=== PATIENT | female | born 1995 | race Caucasian/White ===

== ENCOUNTER 2019-01-09 19:32 | Inpatient (IN) | payer SELFPAY ==
[~2019-01-09] VITALS: Ht 149.9 cm; Wt 68.0 kg
[2019-01-09] MEDS ORDERED: LACTATED RINGERS 1,000 ML IV SCH ×2 (20:23→21:30)
[2019-01-09] MEDS ORDERED: DEXT 5%/LR + PITOCIN 20UNITS/L 1,000 ML IV SCH (20:23)
[2019-01-09] MEDS ORDERED: BUTORPHANOL TARTRATE 2 MG/ML VIAL IV PRN (20:30)
[2019-01-09] MEDS ORDERED: LIDOCAINE HCL 1% 20ML VIAL (Pyxis) INJ INFIL SCH (20:30)
[2019-01-09] MEDS ORDERED: MISOPROSTOL 100MCG TABLET VG SCH (20:30)
[2019-01-09 20:42] LABS: CLARITY URINE CLEAR (CLEAR); COLOR URINE YELLOW (YELLOW); KETONES URINE NEGATIVE (NEGATIVE); LEUKOCYTE ESTERASE URINE 2+ (NEGATIVE); NITRITE URINE NEGATIVE (NEGATIVE); OCCULT BLOOD URINE 1+ (NEGATIVE); PH URINE 7.5 (4.5-8.0); PROTEIN URINE NEGATIVE (NEGATIVE); SPECIFIC GRAVITY URINE 1.009 (1.005-1.030)
[2019-01-09 20:48] LABS: BASOPHILS % 0.7 % (0.0-2.0); EOSINOPHILS % 6.7 % (0.0-5.0); HEMATOCRIT. 35.6 % (36.0-48.0); LYMPHOCYTES % 20.1 % (20.0-50.0); MEAN CORPUSCULAR HEMOGLOBIN 30.2 pg (28.0-32.0); MEAN CORPUSCULAR VOLUME 89.5 fL (81.0-99.0); MEAN PLATELET VOLUME 9.7 fl (7.4-10.4); MONOCYTES % 5.2 % (2.0-8.0); NEUTROPHILS % 67.3 % (40.0-76.0); PLATELET 246 x1000/uL (130-400); RED BLOOD CELL COUNT 3.98 mill/uL (4.2-5.4); RED CELL DISTRIBUTION WIDTH 14.5 % (11.6-14.6)
[2019-01-09 20:51] LABS: METHADONE URINE SCREEN NEGATIVE (NEGATIVE)
[2019-01-09 20:52] LABS: CHLORIDE 105 mEq/L (98-107)
[2019-01-09 20:52] LABS: *AMPHETAMINES SCREEN URINE NEGATIVE (NEGATIVE); *BARBITURATES SCREEN URINE NEGATIVE (NEGATIVE); *BENZODIAZEPINES SCREEN URINE NEGATIVE (NEGATIVE); *COCAINE SCREEN URINE NEGATIVE (NEGATIVE); CANNABINOID URINE SCREEN NEGATIVE (NEGATIVE); OPIATES URINE SCREEN NEGATIVE (NEGATIVE); PHENCYCLIDINE URINE SCREEN NEGATIVE (NEGATIVE)
[2019-01-09 20:59] LABS: INR 0.9; PARTIAL THROMBOPLASTIN TIME 28.3 sec (23.4-31.0); PROTHROMBIN TIME 9.3 sec (9.6-11.0)
[2019-01-09] MEDS ORDERED: AMPICILLIN 2,000 MG in SODIUM CHLORIDE 0.9% 100 ML IV NR (21:00)
[2019-01-09 21:22] LABS: HEPATITIS B SURFACE ANTIGEN NEGATIVE
[2019-01-09] MEDS ORDERED: ACETAMINOPHEN 325MG TABLET PO PRN (21:45)
[2019-01-09] MEDS ORDERED: ROPIVACAINE HCL/PF EPIDURAL 200 ML EPI SCH (23:00)
[2019-01-10] MEDS: AMPICILLIN 1,000 MG in SODIUM CHLORIDE 0.9% 50 ML IV SCH ×2 (02:57→08:40)
[2019-01-10] MEDS ORDERED: BETAMETHASONE ACET/BETAMET 30 MG/5 ML VIAL IM NR (03:30)
[2019-01-10 09:34] LABS: BG BASE EXCESS -4.3 mmol/L (-2.0-2.0); BG FRACTION INSPIRED OXYGEN 21; BG HCO3 ACT 22.6 mmol/L (22.0-26.0); BG PCO2 48.4 mmHg (35.0-45.0); BG PH 7.287 (7.350-7.450); BG PO2 < 30.3 mmHg (75.0-100.0); BG SAMPLE SITE CORD; BG VENT MODE ROOM AIR
[2019-01-10 09:34] LABS: BG BASE EXCESS -2.1 mmol/L (-2.0-2.0); BG FRACTION INSPIRED OXYGEN 21; BG HCO3 ACT 24.2 mmol/L (22.0-26.0); BG PH 7.329 (7.350-7.450); BG PO2 < 30.3 mmHg (75.0-100.0); BG SAMPLE SITE CORD; BG VENT MODE ROOM AIR
[2019-01-10] MEDS ORDERED: DEXT 5%/LR + PITOCIN 20UNITS/L 1,000 ML IV SCH (10:32)
[2019-01-10] MEDS ORDERED: GLYCERIN/WITCH HAZEL LEAF MEDICATED PAD TOP PRN (10:45)
[2019-01-10] MEDS ORDERED: BISACODYL 10MG SUPP PR PRN (10:45)
[2019-01-10] MEDS ORDERED: HEMORRHOIDAL SUPP PR PRN (10:45)
[2019-01-10] MEDS ORDERED: LANOLIN OINT 7GM TUBE TOP PRN (10:45)
[2019-01-10] MEDS ORDERED: TETANUS, DIPHTHERIA, PERTUSSIS VAC/PF 0.5ML (>7YR OLD) IM ONE (10:45)
[2019-01-10] MEDS ORDERED: DIPHENHYDRAMINE 25MG CAPSULE PO PRN (10:45)
[2019-01-10] MEDS ORDERED: IBUPROFEN 800MG TABLET PO PRN (10:45)
[2019-01-10] MEDS ORDERED: ACETAMINOPHEN WITH CODEINE 300/30MG TABLET PO PRN (10:45)
[2019-01-10] MEDS ORDERED: IBUPROFEN 400MG TABLET PO PRN (10:45)
[2019-01-10] MEDS ORDERED: BENZOCAINE/LANOLIN/ALOE VERA SPRAY TOP PRN (10:45)
[2019-01-10 10:55] VITALS: BP 129/79
[2019-01-10 11:25] VITALS: BP 117/69
[2019-01-10] MEDS: FERROUS SULFATE 325MG TABLET PO SCH ×2 (13:09→17:30)
[2019-01-10 16:15] VITALS: BP 117/78
[2019-01-10 20:00] VITALS: BP 109/68
[2019-01-10] MEDS: DOCUSATE SODIUM 100MG CAPSULE PO SCH (21:21)
[2019-01-11 05:15] VITALS: BP 96/60
[2019-01-11 07:17] LABS: BASOPHILS % 0.2 % (0.0-2.0); EOSINOPHILS % 0.8 % (0.0-5.0); HEMATOCRIT. 31.5 % (36.0-48.0); HEMOGLOBIN. 10.5 g/dL (12.0-16.0); LYMPHOCYTES % 15.3 % (20.0-50.0); MEAN CORPUSCULAR HEMOGLOBIN 29.6 pg (28.0-32.0); MEAN CORPUSCULAR VOLUME 88.5 fL (81.0-99.0); MEAN PLATELET VOLUME 9.3 fl (7.4-10.4); MONOCYTES % 4.7 % (2.0-8.0); PLATELET 228 x1000/uL (130-400); RED BLOOD CELL COUNT 3.56 mill/uL (4.2-5.4); RED CELL DISTRIBUTION WIDTH 14.3 % (11.6-14.6)
[2019-01-11] MEDS: FERROUS SULFATE 325MG TABLET PO SCH ×3 (07:30→17:18)
[2019-01-11] MEDS: PRENATAL VIT/FE FUMARATE/FA TABLET PO SCH (09:00)
[2019-01-11 11:38] VITALS: BP 116/68
[2019-01-11 16:15] VITALS: BP 107/73
[2019-01-11 21:00] VITALS: BP 107/64
[2019-01-11] MEDS: DOCUSATE SODIUM 100MG CAPSULE PO SCH (21:43)
[2019-01-12 06:00] VITALS: BP 102/68
[2019-01-12 07:30] VITALS: BP 115/70
[2019-01-12] MEDS: FERROUS SULFATE 325MG TABLET PO SCH (08:46)
[2019-01-12] MEDS: PRENATAL VIT/FE FUMARATE/FA TABLET PO SCH (08:46)
[2019-01-12 15:50] VITALS: BP 94/60
== END 2019-01-12 17:30 | disposition home or self-care (01) | DRG 560 ==
LOC: EDBD 19:32 → OBSVTOIN 19:32 → 8 EST LDRP 19:32 → 8EST 01-10 10:55
PROVIDERS: ADMIT Obstetrics & Gynecology; ATTEND Obstetrics & Gynecology
PROC: 3E0R3BZ Introduction of Anesthetic Agent into Spinal Canal, Percutaneous Approach (ICD-10-PCS; principal; 2019-01-10)
PROC: 10D07Z6 Extraction of Products of Conception, Vacuum, Via Natural or Artificial Opening (ICD-10-PCS; 2019-01-10)
PROC: 00HU33Z Insertion of Infusion Device into Spinal Canal, Percutaneous Approach (ICD-10-PCS; 2019-01-10)
PROC: 0W8NXZZ Division of Female Perineum, External Approach (ICD-10-PCS; 2019-01-10)
DX: O69.81X0 Labor and delivery complicated by cord around neck, without compression, not applicable or unspecified (principal); Z37.0 Single live birth; Z3A.40 40 weeks gestation of pregnancy
CPT/HCPCS: 36415; 36600; 76805; 80305; 81003; 82805; 86592; 86703; 86762; 86850; 86900; 87340; 90715; 99281; J0290; J0595; J0702; J2590; J2795; J7050; J7120; A4315